=== PATIENT | male | born 1960 | race Caucasian/White ===

== ENCOUNTER 2018-11-08 23:30 | Emergency (ER) | payer BC, OTHER ==
[2018-11-09] MEDS ORDERED: Lidocaine 1% MPF ** 5 ML VIAL INJ ONE (00:11)
[2018-11-09] MEDS ORDERED: Lidocaine 1% MPF ** 5 ML VIAL ONE (00:19)
--- NOTE | 2018-11-09 00:23 | ED ---
Laceration/Wound HPI - HPI Summary HPI Summary: 58-year-old male presents with left middle finger laceration today. He states he cut it on a knife. The area is actively bleeding. No foreign body in the wound. has full ROM finger. He states tetanus is up-to-date. Has history diabetes. - History of Current Complaint Stated Complaint: FINGER LAC PER PT Time Seen by Provider: 11/09/18 00:06 Pain Intensity: 1 - Allergy/Home Medications Allergies/Adverse Reactions: Allergies Allergy/AdvReac Type Severity Reaction Status Date / Time MS Amoxicillin [Amoxicillin] Allergy Unknown Verified 11/08/18 23:33 Reaction Details MS Meperidine Allergy Unknown Verified 11/08/18 23:33 [From Demerol HCl] Reaction Details MS Sulfa Antibiotics Allergy Unknown Verified 11/08/18 23:33 [Sulfa Antibiotics] Reaction Details PMH/Surg Hx/FS Hx/Imm Hx Endocrine/Hematology History: Denies: Hx Anticoagulant Therapy Cardiovascular History: Denies: Hx Pacemaker/ICD Sensory History: Denies: Hx Hearing Aid Psychiatric History: Denies: Hx Panic Disorder - Surgical History Surgery Procedure, Year, and Place: GASTRIC BYPASS 2011, RT KIDNEY REMOVED 1981, - Immunization History Date of Tetanus Vaccine: less than 5 years Immunizations Up to Date: Yes Infectious Disease History: No Infectious Disease History: Denies: Traveled Outside the [place] in Last 30 Days - Family History Known Family History: Positive: Non-Contributory - Social History Alcohol Use: Rare Substance Use Type: Reports: None Smoking Status (MU): Never Smoked Tobacco Review of Systems Negative: Fever Negative: Chest Pain Negative: Shortness Of Breath Positive: Other - left middle finger laceration All Other Systems Reviewed And Are Negative: Yes Physical Exam Triage Information Reviewed: Yes Vital Signs On Initial Exam: Initial Vitals Temp Pulse Resp BP Pulse Ox 97.3 F 60 18 136/98 97 11/08/18 23:30 11/08/18 23:30 11/08/18 23:30 11/08/18 23:30 11/08/18 23:30 Vital Signs Reviewed: Yes Appearance: Positive: Well-Appearing Skin: Positive: Warm, Dry, Other - 3cm by 1/4cm flap like laceration of left middle finger Head/Face: Positive: Normal Head/Face Inspection Eyes: Positive: Normal, Conjunctiva Clear ENT: Positive: Pharynx normal Respiratory/Lung Sounds: Positive: Clear to Auscultation, Breath Sounds Present Cardiovascular: Positive: Normal, RRR Musculoskeletal: Positive: Strength/ROM Intact - left middle finger, Other - capillary refill<2 secs Neurological: Positive: Normal Psychiatric: Positive: Normal Procedures - Laceration/Wound Repair 1 Location: Other - left middle finger Description: Irregular Length, Depth and Shape: 3cm by 1/4cm Irrigated w/ Saline (ccs): 200 Suture Type: Prolene Number of Sutures: 5 Diagnostics - Vital Signs Vital Signs Temp Pulse Resp BP Pulse Ox 11/08/18 23:30 97.3 F 60 18 136/98 97 - Laboratory Lab Statement: Any lab studies that have been ordered have been reviewed, and results considered in the medical decision making process. Laceration Repair Course/Dx - Course Course Of Treatment: 58-year-old male presents with left middle finger laceration today. He states he cut it on a knife. The area is actively bleeding. No foreign body. in the wound. has full ROM finger. He states tetanus is up-to-date. Has history diabetes. on exam has a centimeter by 1/4 cm flap-like laceration of left middle finger. Cleaned area and placed 5 sutures. Told to keep area clean and dry. Patient understands agrees plan. - Differential Dx Differental Diagnoses: Abrasion, Avulsion, Laceration - Clinical Impression Provider Diagnoses: Laceration of left middle finger Discharge - Sign-Out/Discharge Documenting (check all that apply): Patient Departure Patient Received Moderate/Deep Sedation with Procedure: No - Discharge Plan Condition: Good Disposition: HOME Patient Education Materials: Care For Your Stitches (ED) Referrals: No Primary Care Phys,NOPCP [Primary Care Provider] - Additional Instructions: Take Tylenol or ibuprofen for pain every 6 hours as needed Keep area clean and dry for 24 hours Return to ED or primary in 8-10 days to have sutures removed Return to ED if develop signs of infection such as fever, spreading redness, or pus. - Billing Disposition and Condition Condition: GOOD Disposition: Home
[2018-11-09 00:58] VITALS: BP 122/80
== END 2018-11-09 00:57 | disposition home or self-care (01) ==
LOC: ED 23:30
DX: S61.213A Laceration without foreign body of left middle finger without damage to nail, initial encounter (principal); W26.0XXA Contact with knife, initial encounter; Y92.9 Unspecified place or not applicable; Z88.5 Allergy status to narcotic agent; Z88.0 Allergy status to penicillin; Z88.2 Allergy status to sulfonamides
CPT/HCPCS: 12002; 99282